=== PATIENT | female | born 1985 | race Caucasian/White ===

== ENCOUNTER → 2018-02-21 | Outpatient (CLI) | payer OTHER ==
[~2018-02-21] MED LIST: ALPR-475 PO; DEXL60CA2 PO; DICY10CA3 PO; IBUP-1222 PO; IRON PO; ZOLP10TA5 PO
== END | disposition home or self-care (01) ==
LOC: RAD 06:56
PROVIDERS: ATTEND Nurse Practitioner
DX: M19.071 Primary osteoarthritis, right ankle and foot (principal); M20.11 Hallux valgus (acquired), right foot

== ENCOUNTER → 2018-03-14 | Outpatient (CLI) | payer OTHER | END | disposition home or self-care (01) | LOC: PETCFH 07:20 | PROVIDERS: ATTEND Family Medicine | DX: K82.0 Obstruction of gallbladder (principal); M54.9 Dorsalgia, unspecified | CPT/HCPCS: 78227; A9537 ==